=== PATIENT | female | born 2000 | race Caucasian/White ===

== ENCOUNTER 2024-09-15 09:17 | Inpatient (IN) | payer BC, SELFPAY ==
[2024-09-15] VITALS (7 sets, daily range): BP systolic 146–186; BP diastolic 89–109; PULSE 75–110; RESP 14–18; TEMP 36.6–37.1; O2SAT 94–100; BMI 59.3; BMI 58.6
[2024-09-15 10:28] LABS: Absolute Lymphocyte Count 2.01 X10^3/uL (0.83-4.51); Absolute Neutrophil Count 6.5 X10^3/uL (2.0-7.7); Basophil# 0.02 X10^3/uL; Basophil% 0.2 % (0-1); Eosinophil# 0.13 X10^3/uL; Eosinophils% 1.4 % (0-5); Hematocrit 43.9 % (37-47); Hemoglobin 13.3 g/dL (12.0-15.0); Lymphocyte # 2.01 X10^3/ul (0.83-4.51); Lymphocyte % 22.4 % (19-41); Mean Corp Hgb Conc 30.3 g/dL (32-36); Mean Corpuscular Hgb 22.7 pg (27.0-32.0); Mean Corpuscular Volume 74.9 fL (81-99); Mean Platelet Vol. 10.1 fl (6.2-12.0); Monocyte# 0.33 X10^3/uL; Monocyte% 3.7 % (0-10); NRBC Flagged by Analyzer 0 % (0-5); Neutrophil # 6.46 X10^3/uL (2.7-7.7); Neutrophil % 71.9 % (47-70); Platelet Count 297 K/mm3 (150-450); RBC Distribution Width CV 14.7 % (11.6-14.6); RBC Distribution Width SD 39.6 fl (35.1-43.9); Red Blood Count 5.86 M/mm3 (4.2-5.4)
[2024-09-15 10:45] LABS: Internal QC Validated? YES +Cl - CLEAR BKGD; Pregnancy, Serum, hCG Quali. NEGATIVE Negative; Record Kit Lot#, Serum Preg. 869294
[2024-09-15 10:48] LABS: ALB/GLOB Ratio 0.9 RATIO (0.9-2.4); AST(SGOT) 208 U/L (15-37); Alanine Aminotransfer ALT/SGPT 230 U/L (13-56); Albumin, Serum 3.6 g/dL (3.2-5.0); Alkaline Phosphatase 313 U/L (45-117); Anion Gap 5 (5-15); BUN 8 mg/dL (7-18); BUN/Creat Ratio 11.3 RATIO (10-20); Calcium,Total 9.6 mg/dL (8.5-10.1); Chloride 108 mmol/L (98-107); Creatinine, Serum 0.71 mg/dL (0.55-1.02); EST Glomerular Filtration Rate 106 mL/min (>60); Est Glom Filt Rate - Afr Amer 128 mL/min (>60); Estimated Creatinine Clearance 180.97 ml/min; Globulin 4.1 g/dL (2.2-4.2); Glucose 89 mg/dL (74-106); Lipase 625 U/L (13-75); Protein, Total 7.7 g/dL (6.4-8.2); Sodium Level 138 mmol/L (136-145); Troponin-I HS 6 pg/mL (3.0-54.0)
[2024-09-15] MEDS: Ketorolac 15 MG/ML Vial IV (11:09)
[2024-09-15 13:24] LABS: Cholesterol 223 mg/dL (200); High Density Lipoprotein 56 mg/dL; Triglycerides 93 mg/dL; Very Low Density Lipoprotein 19 mg/dL (5-40)
[2024-09-15] MEDS: Pantoprazole Sodium 40 MG in 0.9% Normal Saline (100mL MB+) 100 ML 330 MG IV ×2 (15:10→20:11)
[2024-09-15] MEDS: 0.9% Normal Saline (1000mL) 1,000 ML 100 ML IV (17:07)
[2024-09-15] MEDS: busPIRone 5 MG Tablet 10 MG PO (21:08)
[2024-09-15] MEDS: MELATONIN 3 MG TABLET PO (21:09)
[2024-09-15] MEDS: Piperacil/Tazobactam 3.375 GM in 0.9% Normal Saline (50mL MB+) 50 ML IV (21:09)
[2024-09-15] MEDS: Ondansetron 4 MG/2 ML Vial IV (22:41)
[2024-09-16] VITALS (13 sets, daily range): BP systolic 142–172; BP diastolic 87–107; PULSE 68–114; RESP 16–18; TEMP 36.3–37; O2SAT 97–100; BMI 59.0
[2024-09-16] MEDS: proCHLORPERazine 10 MG/2 ML Vial 5 MG IV (00:44)
[2024-09-16] MEDS: guaiFENesin 10 ML UDC (200MG/10ML) 20 ML PO (00:53)
[2024-09-16] MEDS: Acetaminophen 325 MG Tablet 650 MG PO ×2 (02:53→20:29)
[2024-09-16] MEDS: hydrOXYzine PAM 25 MG Capsule PO (02:59)
[2024-09-16] MEDS: Piperacil/Tazobactam 3.375 GM in 0.9% Normal Saline (50mL MB+) 50 ML IV ×3 (05:59→20:41)
[2024-09-16] MEDS: Ketorolac 30 MG/ML Syringe IV ×2 (05:59→22:08)
[2024-09-16 06:36] LABS: Absolute Lymphocyte Count 2.03 X10^3/uL (0.83-4.51); Absolute Neutrophil Count 10.6 X10^3/uL (2.0-7.7); Basophil# 0.03 X10^3/uL; Basophil% 0.2 % (0-1); Eosinophil# 0.02 X10^3/uL; Eosinophils% 0.2 % (0-5); Hematocrit 41.3 % (37-47); Hemoglobin 12.3 g/dL (12.0-15.0); Lymphocyte # 2.03 X10^3/ul (0.83-4.51); Lymphocyte % 15.3 % (19-41); Mean Corp Hgb Conc 29.8 g/dL (32-36); Mean Corpuscular Hgb 22.7 pg (27.0-32.0); Mean Corpuscular Volume 76.1 fL (81-99); Mean Platelet Vol. 10.7 fl (6.2-12.0); Monocyte# 0.58 X10^3/uL; Monocyte% 4.4 % (0-10); NRBC Flagged by Analyzer 0 % (0-5); Neutrophil # 10.57 X10^3/uL (2.7-7.7); Neutrophil % 79.6 % (47-70); Platelet Count 237 K/mm3 (150-450); RBC Distribution Width CV 14.9 % (11.6-14.6); RBC Distribution Width SD 40.5 fl (35.1-43.9); Red Blood Count 5.43 M/mm3 (4.2-5.4); White Blood Count 13.3 K/mm3 (4.4-11.0)
[2024-09-16 06:43] LABS: ALB/GLOB Ratio 0.8 RATIO (0.9-2.4); AST(SGOT) 58 U/L (15-37); Alanine Aminotransfer ALT/SGPT 128 U/L (13-56); Albumin, Serum 3.2 g/dL (3.2-5.0); Alkaline Phosphatase 226 U/L (45-117); Anion Gap 8 (5-15); BUN 9 mg/dL (7-18); BUN/Creat Ratio 11.4 RATIO (10-20); Bilirubin, Direct 0.31 mg/dL (0.00-0.30); Chloride 109 mmol/L (98-107); Creatinine, Serum 0.79 mg/dL (0.55-1.02); EST Glomerular Filtration Rate 93 mL/min (>60); Est Glom Filt Rate - Afr Amer 113 mL/min (>60); Globulin 3.8 g/dL (2.2-4.2); Glucose 105 mg/dL (74-106); Lipase 46 U/L (13-75); Potassium 3.7 mmol/L (3.5-5.1); Sodium Level 139 mmol/L (136-145)
[2024-09-16] MEDS: Pantoprazole Sodium 40 MG in 0.9% Normal Saline (100mL MB+) 100 ML 330 MG IV ×2 (10:13→20:39)
[2024-09-16] MEDS: Escitalopram Oxalate 10 MG Tablet PO (10:17)
[2024-09-16] MEDS: busPIRone 5 MG Tablet 10 MG PO ×2 (10:17→20:29)
[2024-09-16 11:29] LABS: Internal QC Validated? YES +Cl - CLEAR BKGD; Pregnancy, Urine Negative Negative
[2024-09-16] MEDS: 0.9% Saline Lock 10 ML Syringe IV ×2 (20:29→22:08)
[2024-09-17] VITALS (16 sets, daily range): BP systolic 142–173; BP diastolic 76–97; PULSE 55–76; RESP 16–18; TEMP 36.1–36.8; O2SAT 94–100; BMI 58.8
[2024-09-17 06:06] LABS: Absolute Lymphocyte Count 1.44 X10^3/uL (0.83-4.51); Absolute Neutrophil Count 9.4 X10^3/uL (2.0-7.7); Basophil# 0.01 X10^3/uL; Basophil% 0.1 % (0-1); Hematocrit 45.1 % (37-47); Hemoglobin 13.4 g/dL (12.0-15.0); Lymphocyte # 1.44 X10^3/ul (0.83-4.51); Mean Corp Hgb Conc 29.7 g/dL (32-36); Mean Corpuscular Hgb 23.3 pg (27.0-32.0); Mean Corpuscular Volume 78.4 fL (81-99); Mean Platelet Vol. 11.2 fl (6.2-12.0); Monocyte# 0.23 X10^3/uL; Monocyte% 2.1 % (0-10); NRBC Flagged by Analyzer 0 % (0-5); Neutrophil # 9.38 X10^3/uL (2.7-7.7); Neutrophil % 84.3 % (47-70); Platelet Count 240 K/mm3 (150-450); RBC Distribution Width SD 41.9 fl (35.1-43.9); Red Blood Count 5.75 M/mm3 (4.2-5.4); White Blood Count 11.1 K/mm3 (4.4-11.0)
[2024-09-17] MEDS: Piperacil/Tazobactam 3.375 GM in 0.9% Normal Saline (50mL MB+) 50 ML IV ×2 (06:34→13:21)
[2024-09-17 06:44] LABS: AST(SGOT) 59 U/L (15-37); Alanine Aminotransfer ALT/SGPT 97 U/L (13-56); Albumin, Serum 3.1 g/dL (3.2-5.0); Alkaline Phosphatase 217 U/L (45-117); Anion Gap 8 (5-15); BUN 10 mg/dL (7-18); BUN/Creat Ratio 14.1 RATIO (10-20); Bilirubin, Direct 0.07 mg/dL (0.00-0.30); Calcium,Total 9.3 mg/dL (8.5-10.1); Chloride 114 mmol/L (98-107); Creatinine, Serum 0.71 mg/dL (0.55-1.02); EST Glomerular Filtration Rate 105 mL/min (>60); Est Glom Filt Rate - Afr Amer 128 mL/min (>60); Estimated Creatinine Clearance 180.04 ml/min; Glucose 98 mg/dL (74-106); Potassium 5.3 mmol/L (3.5-5.1); Protein, Total 8.1 g/dL (6.4-8.2); Sodium Level 135 mmol/L (136-145)
[2024-09-17] MEDS: Ketorolac 30 MG/ML Syringe IV ×2 (08:20→16:06)
[2024-09-17] MEDS: 0.9% Saline Lock 10 ML Syringe IV ×4 (08:20→21:39)
[2024-09-17 09:03] LABS: Internal QC Validated? YES +Cl - CLEAR BKGD; Pregnancy, Urine Negative Negative
[2024-09-17 10:27] LABS: Anion Gap 7 (5-15); BUN 11 mg/dL (7-18); BUN/Creat Ratio 15.3 RATIO (10-20); Calcium,Total 9.4 mg/dL (8.5-10.1); Chloride 111 mmol/L (98-107); Creatinine, Serum 0.72 mg/dL (0.55-1.02); EST Glomerular Filtration Rate 104 mL/min (>60); Est Glom Filt Rate - Afr Amer 125 mL/min (>60); Estimated Creatinine Clearance 177.54 ml/min; Glucose 89 mg/dL (74-106); Potassium 4.1 mmol/L (3.5-5.1); Sodium Level 140 mmol/L (136-145)
[2024-09-17] MEDS: Pantoprazole Sodium 40 MG in 0.9% Normal Saline (100mL MB+) 100 ML 330 MG IV ×2 (10:50→21:38)
[2024-09-17] MEDS: Bupivacaine Mpf 0.5% 30 ML VIAL (14:13)
[2024-09-17] MEDS: busPIRone 5 MG Tablet 10 MG PO (21:40)
[2024-09-17] MEDS: Acetaminophen 325 MG Tablet 650 MG PO (21:40)
[2024-09-18] MEDS: traZODone 50 MG Tablet PO (00:07)
[2024-09-18 03:35] VITALS: BP 132/73; PULSE 73; RESP 18; TEMP 36.4; O2SAT 98
[2024-09-18 03:37] VITALS: BP 132/73; PULSE 73; RESP 18; TEMP 36.4; O2SAT 98
[2024-09-18 04:22] VITALS: BMI 58.6
[2024-09-18 07:00] VITALS: O2SAT 99
[2024-09-18 07:22] LABS: AST(SGOT) 25 U/L (15-37); Alanine Aminotransfer ALT/SGPT 61 U/L (13-56); Albumin, Serum 2.9 g/dL (3.2-5.0); Alkaline Phosphatase 143 U/L (45-117); Bilirubin, Direct 0.15 mg/dL (0.00-0.30); Globulin 3.4 g/dL (2.2-4.2); Protein, Total 6.3 g/dL (6.4-8.2)
[2024-09-18 07:51] VITALS: O2SAT 95
[2024-09-18] MEDS: busPIRone 5 MG Tablet 10 MG PO (08:37)
[2024-09-18] MEDS: Escitalopram Oxalate 10 MG Tablet PO (08:37)
[2024-09-18] MEDS: Pantoprazole Sodium 40 MG in 0.9% Normal Saline (100mL MB+) 100 ML 330 MG IV (08:38)
[2024-09-18] MEDS: 0.9% Saline Lock 10 ML Syringe IV (08:38)
[2024-09-18] MEDS: Acetaminophen 325 MG Tablet 650 MG PO (08:44)
[2024-09-18 09:00] VITALS: BP 128/78; PULSE 70; RESP 16; TEMP 36.6; O2SAT 99
[2024-09-18 10:37] VITALS: BP 128/78; PULSE 70; RESP 16; TEMP 36.6; O2SAT 99
== END 2024-09-18 11:00 | disposition home or self-care (01) | DRG 418 ==
LOC: ED 15:49 → PCU 16:08
PROVIDERS: Anesthesiology; Internal Medicine; Internal Medicine Gastroenterology; Surgery; Admitting Provider Family Medicine; Emergency Provider Emergency Medicine
PROC: 0FC98ZZ Extirpation of Matter from Common Bile Duct, Via Natural or Artificial Opening Endoscopic (ICD-10-PCS; CPT 43260; principal; 2024-09-16 16:40)
PROC: 0FT44ZZ Resection of Gallbladder, Percutaneous Endoscopic Approach (ICD-10-PCS; CPT 47610; principal; 2024-09-17 12:40)
DX: K80.65 Calculus of gallbladder and bile duct with chronic cholecystitis with obstruction (principal); Z68.43 Body mass index [BMI] 50.0-59.9, adult; K75.89 Other specified inflammatory liver diseases; F32.A Depression, unspecified; F41.9 Anxiety disorder, unspecified; E78.5 Hyperlipidemia, unspecified; E66.813 Obesity, class 3; Z98.84 Bariatric surgery status; Z79.899 Other long term (current) drug therapy
CPT/HCPCS: 36415; 71046; 74177; 74181; 74300; 74330; 76000; 76705; 80048; 80053; 80061; 80076; 81025; 82248; 83690; 84484; 84703; 85025; 88304; 93005; 94668; 99285; J7030; Q9967; A4216; J2405

== ENCOUNTER → 2024-11-13 | Outpatient (CLI) | payer BC, SELFPAY ==
--- NOTE | 2024-11-13 07:20 | US_ITS ---
INDICATION: abd pain -- RUQ EXAMINATION: Ultrasound US Abdomen Limited (quadrant) TECHNIQUE: Dodson scale and color doppler imaging was performed of the right upper quadrant. COMPARISON: Prior study dated: Gallbladder ultrasound 09/15/2024 FINDINGS: LIVER: There is mild increased echogenicity. No focal hepatic lesion. There is no free fluid. GALLBLADDER AND BILIARY TREE: Interval cholecystectomy. The proximal common bile duct measures 4 mm, which is within normal limits for the patient''s age. Sonographic Bradley''s sign: Not assessed. PANCREAS: No focal abnormality is demonstrated in the pancreas. No pancreatic ductal dilatation. Right kidney 12.2 cm long axis. No hydronephrosis. US/Abdomen Limited IMPRESSION: No acute sonographic abnormality is demonstrated in the right upper quadrant. Electronically Signed: Wiley Flores MD at 20:13 EST ,
[2024-11-13 07:55] LABS: Absolute Lymphocyte Count 3.16 X10^3/uL (0.83-4.51); Absolute Neutrophil Count 5.4 X10^3/uL (2.0-7.7); Basophil# 0.02 X10^3/uL; Basophil% 0.2 % (0-1); Eosinophil# 0.25 X10^3/uL; Eosinophils% 2.7 % (0-5); Hematocrit 41.7 % (37-47); Hemoglobin 12.5 g/dL (12.0-15.0); Lymphocyte # 3.16 X10^3/ul (0.83-4.51); Mean Corpuscular Hgb 22.2 pg (27.0-32.0); Mean Corpuscular Volume 74.1 fL (81-99); Mean Platelet Vol. 9.9 fl (6.2-12.0); Monocyte# 0.43 X10^3/uL; Monocyte% 4.6 % (0-10); NRBC Flagged by Analyzer 0 % (0-5); Neutrophil # 5.41 X10^3/uL (2.7-7.7); Neutrophil % 58.3 % (47-70); Platelet Count 294 K/mm3 (150-450); RBC Distribution Width CV 14.6 % (11.6-14.6); RBC Distribution Width SD 38.5 fl (35.1-43.9); Red Blood Count 5.63 M/mm3 (4.2-5.4); White Blood Count 9.3 K/mm3 (4.4-11.0)
[2024-11-13 08:13] LABS: AST(SGOT) 13 U/L (15-37); Alanine Aminotransfer ALT/SGPT 17 U/L (13-56); Albumin, Serum 3.3 g/dL (3.2-5.0); Alkaline Phosphatase 131 U/L (45-117); Bilirubin, Direct 0.17 mg/dL (0.00-0.30); Protein, Total 7.3 g/dL (6.4-8.2)
== END | disposition home or self-care (01) ==
PROVIDERS: PCP Family Medicine; Referring Provider Internal Medicine Gastroenterology; Visit Provider Internal Medicine Gastroenterology
DX: Z98.890 Other specified postprocedural states (principal)
CPT/HCPCS: 36415; 76705; 80076; 85025

== ENCOUNTER 2024-12-19 12:56 | Day surgery (SDC) | payer BC, SELFPAY ==
[2024-12-19] VITALS (8 sets, daily range): BP systolic 145–169; BP diastolic 83–95; PULSE 75–101; RESP 17–18; TEMP 36.4–36.6; O2SAT 98–100; BMI 58.8
--- NOTE | 2024-12-19 13:08 | EKG12_ITS ---
Test Reason : PREOP Blood Pressure : */* mmHG Vent. Rate : 81 BPM Atrial Rate : 81 BPM P-R Int : 130 ms QRS Dur : 82 ms QT Int : 350 ms P-R-T Axes : 33 28 7 degrees QTcB Int : 406 ms Normal sinus rhythm Normal ECG When compared with ECG of 15-Sep-2024 09:31, Criteria for Inferior infarct are no longer Present Confirmed by Ian Tavares ([id number]), design editor CHENG CARDENAS ([id number]) on 12/22/2024 10:57:16 AM Referred By: Kunal Moya Confirmed By: Ian Tavares
[2024-12-19] MEDS: 0.9% Normal Saline (1000mL) 1,000 ML 15 ML IV (13:39)
[2024-12-19 13:46] LABS: Internal QC Validated? YES +Cl - CLEAR BKGD
[2024-12-19 13:47] LABS: Pregnancy, Urine Negative Negative
--- NOTE | 2024-12-19 14:00 | FLU_PTH ---
PATIENT: ANKUSH MCCARTHY LOC: EN U#:[id number] AGE/SX: 24/F ROOM: RE12/19/[address]: Dr. Oliverio Romo DO : 2000 BED: DIS: 12/19/2024 SPEC #: [id number] RECD: 12/19/24 16:33 STATUS: ASUNCION RESteven #: [id number] YVONNE: 12/19/24 14:[address]: Oliverio Romo DEPT: CYTOLOGY RECD BY: Narinder Figueroa ENTERED: 12/22/24 08:36 SP TYPE: Fluid OTHR DR: Dr. Kunal Moya MD Tissues: Bile duct, NOS Procedures: Special Stain Group II Surgery Specimen Level III Surgery Specimen Level IV Cytospin Fluid HEADER OPERATION: ERCP with stent removal PRE-OP DIAGNOSIS: Stent removal, choledocholithiasis TISSUE SUBMITTED: Stent for cytology DIAGNOSIS CYTOLOGY ERCP stent: * No malignant cells are identified. COMMENT The slides were reviewed in intradepartmental consultation by Dr Meagan Whyte (Formerly [facility] pathology division). CYTOLOGY STUDY Slides are reviewed. CYTOLOGY GROSS Received is 12cm blue stent labeled with the patient's name and and designated per the requisition as Stent. Submitted for cytospin preparation (2 slides) and cell block (1 slide). Mr 12/22/2024 TC: CPT: 30266,00808
--- NOTE | 2024-12-19 14:49 | PRE.ANES_ITS ---
ASA Classification* ASA Classification ASA Classification: 3 Assessment & Plan Anesthesia* Anesthesia Assessment Anesthesia Assessment: Discussed sedation and/or anesthesia options, risks, benefits, and alternatives with patient/parents/legal guardian/POA. Questions invited. The patient/parents/legal guardian/POA seems to understand and agrees to proceed with anesthesia plan. Reviewed the physical assessment, medical history, allergy history and patient home medications list prior to surgery/procedure/anesthetic and documented any changes. Performed airway and anesthesia risk assessments. Anesthesia Type Anesthesia Type: MAC History Source History Obtained from:: Patient and Chart Anesthesia Focused Assessment* Temperature: 97.6 F Pulse Rate: 101 Blood Pressure: 169/90 Respiratory Rate: 17 Pulse Ox: 99 Oxygen Delivery Method: Room Air Airway Assessment Mouth opens: 2 cm Mallampati Score: IV Teeth Condition: Lower (Patient has a permanent retainer behind bottom teeth.) Neck Range of motion (ROM): Limited ROM (Slight decrease in extension) Focused Labs Anesthesia Preop lab: CBC WBC 9.3 K/mm3 (4.4-11.0) 11/13/24 07:45 11/13/24 RBC 5.63 M/mm3 (4.2-5.4) H 11/13/24 07:45 11/13/24 Hgb 12.5 g/dL (12.0-15.0) 11/13/24 07:45 11/13/24 Hct 41.7 % (37-47) 11/13/24 07:45 11/13/24 Plt Count 294 K/mm3 (150-450) 11/13/24 07:45 11/13/24 CHEMISTRY Potassium 4.1 mmol/L (3.5-5.1) 09/17/24 10:00 09/17/24 Sodium 140 mmol/L (136-145) 09/17/24 10:00 09/17/24 BUN 11 mg/dL (7-18) 09/17/24 10:00 09/17/24 Creatinine 0.72 mg/dL (0.55-1.02) 09/17/24 10:00 09/17/24 Glucose 89 mg/dL (74-106) 09/17/24 10:00 09/17/24 COAG Urine Test Negative Negative 12/19/24 13:20 12/19/24 Pre-Assessment Diagnosis/Proposed Procedure Planned Operative Procedure(s): ERCP Anesthesia History Anesthesia History - principal military analyst: Anesthesia History - principal military analyst Hx Hospitalization Yes: 08/202412/15/24 15:02 Any Problems With Anesthesia No 12/15/24 15:02 Cholinesterase deficiency No 12/15/24 15:02 You/Your Family Experience No 12/15/24 15:02 fever (hyperthermia) with Relationship Recent Exposure to Contagious No 12/19/24 13:35 Disease Does patient have nerve No 12/15/24 15:02 stimulator Patient instructed to have device shut off --Does patient have Pacemaker No 12/19/24 13:35 or ICD? When Was Last Pacemaker Check QUESTION #4 FULL TEXT: You/Your Family Experience fever (hyperthermia) with Anesthesia Last Oral Intake Last Oral intake: Last Oral Intake NPO since 00:00 12/19/24 13:35 Meds taken in AM with sips of water? Meds patient instructed to take am of surgery PONV PONV - principal military analyst: PONV - principal military analyst Female Yes 12/15/24 15:02 HX of Motion Sickness No 12/15/24 15:02 HX of N/V After Surgery No 12/15/24 15:02 Non-Smoker Yes 12/15/24 15:02 Duration of Surgery greater No 12/15/24 15:02 than 60 minutes Number of Risk Factors 2 12/15/24 15:02 PONV Score Moderate Risk 12/15/24 15:02 Height & Weight Height & Weight: Anesthesia: Height & Weight Height 5 ft 4 in 12/19/24 13:35 Weight: 155.6 kg 12/19/24 13:35 Body Mass Index (BMI) 58.8 12/19/24 13:35 Respiratory Assessment Respiratory Assessment - principal military analyst: Respiratory Tract Infection Hx - principal military analyst Hx Respiratory Tract Infection Yes: NO FEVER OR CHEST 12/15/24 15:02 CONGESTION Any additional information?: Yes Hx Respiratory Tract Infection: Yes (Patient states he has some seasonal congestion. No fevers.) STOP Sleep Apnea STOP Sleep Apnea - principal military analyst: STOP Sleep Apnea - principal military analyst Hx Hypertension No 12/15/24 15:02 Hx Sleep Apnea No 12/15/24 15:02 CPAP BIPAP Do you snore loudly (louder No 12/15/24 15:02 than talking or can be heard Do you often feel tired/ No 12/15/24 15:02 fatigued/ sleepy during daytime? Has anyone observed you stop No 12/15/24 15:02 breathing during sleep? STOP Results Negative 12/15/24 15:02 QUESTION #5 FULL TEXT : Do you snore loudly (louder than talking or can be heard through closed doors)? Tobacco Use History Tobacco Use History - principal military analyst: Tobacco Use History - principal military analyst Tobacco Use Smoking Status Never smoker 12/15/24 15:02 Hx Tobacco Use No 12/15/24 15:02 Years Smoking Packs Smoked per Day Smoking Cessation Date was within the last 15 years Hx Smoking Cessation Date Hx Smoking Cessation Counseling Hematologic Medial History Hematologic Hx - principal military analyst: Hematologic Medical Hx - credit operations processor Hx of Blood Transfusion No 12/15/24 15:02 Hx of Transfusion in last 3 No 12/15/24 15:02 Months Date of Last Transfusion (if within last 3 months) Ever experience any problems No 12/15/24 15:02 with transfusion(s)? Specify any problems Hx of Preganancy in last 3 No 12/15/24 15:02 Months Nurse Filling Out Transfusion VCHRISTIN 12/15/24 15:02 & Questions: Date: 12/15/24 12/15/24 15:02 Time: 15:04 12/15/24 15:02 Patient unable to answer at this time (ie. confused, unrespo /Reproduction History /Reproductive History - principal military analyst: /Reproductive Hx- principal military analyst Hx Now No 12/15/24 15:02 Gestational Age (in weeks): EDC: Hx Hx Para Hx Section SAB No 12/15/24 15:02 Active Medications Active Medications: Current Medications Generic Name Dose Route Start Last Admin Trade Name Freq PRN Reason Stop Dose Admin Sodium Chloride 1,000 mls @ 15 mls/hr 12/19/24 13:10 12/19/24 13:39 IV 12/25/24 02:29 15 mls/hr .Q48H STORM Administration Protocol PFSH Medical History (Updated 12/15/24 @ 15:02 by Cee Perez) Wears partial dentures Wears glasses History of Clostridium difficile infection Depression Anxiety History of steroid therapy Anemia Non-smoker IUD (intrauterine device) in place HLD (hyperlipidemia) PCOS (polycystic ovarian syndrome) Anxiety and depression Morbid obesity Home Medications ?Medication ?Instructions ?Recorded ?Last Taken ?Type buspirone 10 mg tablet 10 mg PO BID 09/15/24 Unknow n History escitalopram oxalate 20 mg tablet 20 mg PO DAILY 09/15 Unknown History dicyclomine 20 mg tablet 20 mg PO TID PRN abdominal p ain 11/06/24 Unknown Rx #90 tabs Allergy/AdvReac Type Severity Reaction Status Date / Time tree nut Allergy Severe Anaphylaxis Verified 12/15/24 14:54 adhesive AdvReac Mild Rash Verified 12/15/24 14:54 latex AdvReac Mild Rash Verified 12/15/24 14:54 Family History Mother Anxiety and depression HLD (hyperlipidemia) Cholelithiasis Father HLD (hyperlipidemia) Hypertension Surgical History (Updated 12/15/24 @ 15:02 by Cee ePrez) S/P ERCP S/P laparoscopic cholecystectomy History of tonsillectomy and adenoidectomy S/P gastric sleeve procedure Social History household members: none Smoking Status: Never smoker alcohol intake: current alcohol intake frequency: holidays/special occasions only substance use type: does not use Review of Systems (Anesthesia) ROS Narrative System reviewed and no additional complaints, except as documented.
--- NOTE | 2024-12-19 15:19 | PCM.HP.STD ---
HPI - General General Date of Admission: 12/19/24 Date of Service: 12/19/24 Chief Complaint: stent removal HPI Narrative ANKUSH MCCARTHY, is a 24 F who presents ANKUSH MCCARTHY, is a 24 F who presents to the office today for hospital follow up. [facility] hospitalization 09.15.24 - 09.18.24 abd pain abd/pelvis CT 09.15.24 Colonic diverticulosis. Mild splenomegaly. Gall Bladder US 09.15.24 Cholelithiasis and a reported positive sonographic Bradley''s sign with no associated gallbladder wall thickening, pericholecystic fluid nor gallbladder distention. MRCP 09.15.24 1. Cholelithiasis is identified. No evidence of choledocholithiasis or choledocho ectasia. 2. Normal appearance of the pancreas. ERCP 09.16.24 Choledocholithiasis was found. Complete removal was accomplished by biliary sphincterotomy and balloon extraction. A biliary sphincterotomy was performed. The biliary tree was swept. One temporary stent was placed into the common bile duct. Cholecystectomy 09.17.[address] Murcia *I established 11.11.24 pt reports that she has been having abd pain on her right side only when she lays down at night. She reports the pain is similar to when she had gallstones and believes it is from the stent. pt is currently scheduled for a stent removal on 12.19.24. Pt reports increased HB since having gallbladder removed. [facility] Medical History Wears partial dentures Wears glasses History of Clostridium difficile infection Depression Anxiety History of steroid therapy Anemia Non-smoker IUD (intrauterine device) in place HLD (hyperlipidemia) PCOS (polycystic ovarian syndrome) Anxiety and depression Morbid obesity Home Medications ?Medication ?Instructions ?Recorded ?Last Taken ?Type buspirone 10 mg tablet 10 mg PO BID 09/15/24 Unknown History escitalopram oxalate 20 mg tablet 20 mg PO DAILY 09/15/24 Unknown History dicyclomine 20 mg tablet 20 mg PO TID PRN abdominal pain 11/06/24 Unknown Rx #90 tabs Allergy/AdvReac Type Severity Reaction Status Date / Time tree nut Allergy Severe Anaphylaxis Verified 12/15/24 14:54 adhesive AdvReac Mild Rash Verified 12/15/24 14:54 latex AdvReac Mild Rash Verified 12/15/24 14:54 Family History Mother Anxiety and depression HLD (hyperlipidemia) Cholelithiasis Father HLD (hyperlipidemia) Hypertension Surgical History S/P ERCP S/P laparoscopic cholecystectomy History of tonsillectomy and adenoidectomy S/P gastric sleeve procedure Social History household members: none Smoking Status: Never smoker alcohol intake: current alcohol intake frequency: holidays/special occasions only substance use type: does not use ROS Constitutional Constitutional: Denies fatigue, fever(s), poor appetite, weight gain or weight loss Gastrointestinal Gastrointestinal: Denies belching, bloating, change in bowel habits, change in stool character, chewing difficulty, coffee ground emesis, constipation, cramping, diarrhea, dyspepsia, dysphagia, early satiety, excessive flatus, fecal incontinence, heartburn, hematemesis, hematochezia, hemorrhoids, loose stools, melena, nausea, odynophagia, rectal bleeding, tenesmus, vomiting or weight changes Vital Signs Vital Signs Vital Signs: 12/19/24 13:35 12/19/24 13:35 12/19/24 14:56 Temperature 97.6 F L 97.6 F L Temperature Source Temporal Pulse Rate 101 H 101 H Respiratory Rate 17 17 Respiratory Pattern Normal Blood Pressure 169/90 H 169/90 H Blood Pressure Mean 116 Blood Pressure Source Monitor Blood Pressure Position Supine Blood Pressure Location Left Forearm Pulse Ox 99 99 Oxygen Delivery Method Room Air Room Air Weight Weight: 343 lb 0.628 oz Body Mass Index (BMI) 58.8 Physical Exam Const alert, oriented x3, no apparent distress and healthy appearing General Appearance: cooperative GI normal to inspection, nondistended, normoactive bowel sounds, soft to palpation, non-tender and non-distended Percussion: normal to percussion Rectal Exam: deferred Results Lab / Micro Data Labs: Laboratory Results - last 24 hr 12/19/24 13:20: Urine Test Negative Assessment & Plan Assessment/Plan (1) S/P ERCP: (2) S/P laparoscopic cholecystectomy: PLAN: Assessment and Plan Assessment and Plan (1) S/P ERCP: Status: Acute (2) S/P laparoscopic cholecystectomy: Status: Acute Plan: This is a very pleasant 24-year-old with recent episode of acute cholecystitis and acute choledocholithiasis status post cholecystectomy and status post ERCP with stone removal and stent placement. She will undergo repeat ERCP with stent removal. Because she had some intermittent right upper quadrant pain is dependent on her laying down we will get follow-up right upper quadrant ultrasound and LFTs along with CBC.
--- NOTE | 2024-12-19 16:00 | RAD_ITS ---
EXAM: INTRAOPERATIVE FLUOROSCOPY CLINICAL HISTORY: Pain COMPARISON: 11/13/2024 TECHNIQUE: Fluoro time: 5.6 seconds Dose: 4.18 mGy Intraoperative cine images are submitted for review. FINDINGS: The common bile duct and intrahepatic ducts are paten with no dilatation or stenoses. Contrast is noted to exit into small bowel. No filling defects. RAD/ERCP Biliary/Pancreas IMPRESSION: As above Reading Location: [facility]
--- NOTE | 2024-12-19 16:33 | OP.ERCP_ITS ---
Patient Name: Akilah Feldman Procedure Date: 12/19/2024 3:42 PM Date of : 2000 Age: 24 Procedure: ERCP Indications: Biliary stent removal Providers: Oliverio Romo DO Medicines: General Anesthesia Patient Profile: This is a 24 year old female. Refer to note in patient chart for documentation of history and physical. Patient has symptoms of acute right upper quadrant abdominal pain. Complications: No immediate complications. Procedure: Pre-Anesthesia Assessment: - Prior to the procedure, a History and Physical was performed, and patient medications and allergies were reviewed. The patient is competent. The risks and benefits of the procedure and the sedation options and risks were discussed with the patient. All questions were answered and informed consent was obtained. Patient identification and proposed procedure were verified by the physician in the pre-procedure area. Mental Status Examination: alert and oriented. Airway Examination: normal oropharyngeal airway and neck mobility. Respiratory Examination: clear to auscultation. CV Examination: normal. ASA Grade Assessment: II - A patient with mild systemic disease. After reviewing the risks and benefits, the patient was deemed in satisfactory condition to undergo the procedure. The anesthesia plan was to use general anesthesia. Immediately prior to administration of medications, the patient was re-assessed for adequacy to receive sedatives. The heart rate, respiratory rate, oxygen saturations, blood pressure, adequacy of pulmonary ventilation, and response to care were monitored throughout the procedure. The physical status of the patient was re-assessed after the procedure. After obtaining informed consent, the scope was passed under direct vision. Throughout the procedure, the patient's blood pressure, pulse, and oxygen saturations were monitored continuously. The Duodenoscope was introduced through the mouth, and advanced to the duodenum and used to inject contrast into the bile duct. The ERCP was accomplished without difficulty. The patient tolerated the procedure well. Scope In: 4:02:13 PM Scope Out: 4:15:27 PM Total Procedure Duration Time 0 hours 13 minutes 14 seconds Findings: The automotive general manager film was normal. The scope was advanced to a normal major papilla in the descending duodenum. Examination of the pharynx, larynx and associated structures, and upper GI tract was normal. The minor papilla was not seen. The bile duct was deeply cannulated with the short-nosed traction sphincterotome. Contrast was injected. I personally interpreted the bile duct images. There was brisk flow of contrast through the ducts. Image quality was adequate. Contrast extended to the bifurcation. Contrast extended to the hepatic ducts. Contrast extended to the entire biliary tree. The main bile duct was mildly dilated and locally dilated, with a stone causing an obstruction. The largest diameter was 9 mm. A long 0.025 inch Jagwire and a straight Roadrunner wire were passed into the biliary tree. A 5 mm biliary sphincterotomy was made with a braided traction (standard) sphincterotome using ERBE electrocautery. There was no post-sphincterotomy bleeding. The biliary tree was swept with a 12 mm balloon starting at the upper third of the main bile duct, middle third of the main bile duct, lower third of the main duct, bifurcation, left intrahepatic duct(s), left main hepatic duct, right intrahepatic duct(s) and right main hepatic duct. All stones were removed. One stent was removed from the biliary tree using a snare and sent for cytology. The stent was found to be partially occluded via the water column test. Impression: - Minor papilla not seen. - The entire main bile duct was mildly dilated, with a stone causing an obstruction. - Choledocholithiasis was found. Complete removal was accomplished by biliary sphincterotomy and balloon extraction. - A biliary sphincterotomy was performed. - The biliary tree was swept. - One stent was removed from the biliary tree. Procedure Code(s): --- Professional --- 91812, Endoscopic retrograde cholangiopancreatography (ERCP); with removal of foreign body(s) or stent(s) from biliary/pancreatic duct(s) 29522, Endoscopic retrograde cholangiopancreatography (ERCP); with removal of calculi/debris from biliary/pancreatic duct(s) 82544, Endoscopic retrograde cholangiopancreatography (ERCP); with sphincterotomy/papillotomy 75006, 26, Endoscopic catheterization of the biliary ductal system, radiological supervision and interpretation CPT copyright 2021 [employer]. All rights reserved. The codes documented in this report are preliminary and upon lay up operator review may be revised to meet current compliance requirements. Oliverio Romo DO 12/19/2024 4:33:12 PM This report has been signed electronically. Number of Addenda: 0 Note Initiated On: 12/19/2024 3:42 PM
--- NOTE | 2024-12-19 16:33 | OP.CCLET_ITS ---
12/19/2024 Kunal Moya Md Re : ERCP procedure for Akilah Feldman Dear Dr. Moya This procedure was performed on Thursday, December 19, 2024. My impressions and recommendations are as follows: Impressions : - Minor papilla not seen. - The entire main bile duct was mildly dilated, with a stone causing an obstruction. - Choledocholithiasis was found. Complete removal was accomplished by biliary sphincterotomy and balloon extraction. - A biliary sphincterotomy was performed. - The biliary tree was swept. - One stent was removed from the biliary tree. Recommendations : My findings are described in the full procedure note, which is enclosed. If I can be of further assistance, please feel free to contact me at . Sincerely, Oliverio Romo, 12/19/2024 4:33:12 PM This report has been signed electronically.
--- NOTE | 2024-12-19 16:51 | PCM.POST.ANE ---
Anesthesia: Postop Eval I Current Vital Signs Temperature: 97.9 F Pulse Rate: 101 Blood Pressure: 169/90 Respiratory Rate: 17 Pulse Ox: 99 Assessment Airway patent: Yes Spontaneous unlabored respirations: Yes nausea: No Vomiting: No Anesthesia Complication: No Fluid Hydration Crystalloid volume administer (ml): 500 Total IV fluid infused: 500 Progress Note Anesthesia document: Postop Eval 1 completed: Yes
--- NOTE | 2024-12-19 18:34 | POSTOPAN2_ITS ---
Anesthesia Postop Eval I Sum Postop Eval Completion status Anesthesia document: Postop Eval 1 completed: Yes Anesthesia Postop Eval I Summary Anesthesia Postop Eval I Summary: Anesthesia Postop Eval I: Assessment Summary Airway patent Yes 12/19/24 16:51 [email or web address] Spontaneous unlabored Yes 12/19/24 16:51 [email or web address] respirations Mental status nausea No 12/19/24 16:51 [email or web address] Vomiting No 12/19/24 16:51 [email or web address] Anesthesia Postop Eval I: Fluid Summary Crystalloid volume administer 500 12/19/24 16:51 [email or web address] (ml) Colloids volume administered ( ml) Blood Product volume administered (ml) Total IV fluid infused 500 12/19/24 16:51 [email or web address] Anesthesia Postop Eval I: Summary Notes Anesthesia Complication No 12/19/24 16:51 [email or web address] Anesthesia Complication Comment: Post-operative progress note Anesthesia: Postop Eval II Evaluation Mental status: Awake and Calm Pain Level: 1 nausea: No Vomiting: No Complications Anesthesia Complication: No
--- NOTE | 2024-12-19 18:34 | PCM.POSTANE2 ---
Anesthesia Postop Eval I Sum Postop Eval Completion status Anesthesia document: Postop Eval 1 completed: Yes Anesthesia Postop Eval I Summary Anesthesia Postop Eval I Summary: Anesthesia Postop Eval I: Assessment Summary Airway patent Yes 12/19/24 16:51 [email or web address] Spontaneous unlabored Yes 12/19/24 16:51 [email or web address] [email or web address] respirations Mental status nausea No 12/19/24 16:51 [email or web address] [email or web address] Vomiting No 12/19/24 16:51 [email or web address] [email or web address] Anesthesia Postop Eval I: Fluid Summary Crystalloid volume administer 500 12/19/24 16:51 EDITING [email or web address] (ml) Colloids volume administered ( ml) Blood Product volume administered (ml) Total IV fluid infused 500 12/19/24 16:51 [email or web address] [email or web address] Anesthesia Postop Eval I: Summary Notes Anesthesia Complication No 12/19/24 16:51 [email or web address] [email or web address] Anesthesia Complication Comment: Post-operative progress note Anesthesia: Postop Eval II Evaluation Mental status: Awake and Calm Pain Level: 1 nausea: No Vomiting: No Complications Anesthesia Complication: No
== END 2024-12-19 17:29 | disposition home or self-care (01) ==
LOC: EN 13:00 → AC 13:02
PROVIDERS: Anesthesiology; PCP Family Medicine; Referring Provider Family Medicine; Visit Provider Internal Medicine Gastroenterology
PROC: (CPT 43260; principal; 2024-12-19 13:40)
DX: K80.71 Calculus of gallbladder and bile duct without cholecystitis with obstruction (principal); K83.8 Other specified diseases of biliary tract; F41.9 Anxiety disorder, unspecified; F32.A Depression, unspecified; Z79.899 Other long term (current) drug therapy
CPT/HCPCS: 43275; 43264; 43262; 74330; 76000; 81025; 88108; 88304; 88305; 88313; 93005; J2405